=== PATIENT | female | born 1990 | race Caucasian/White ===

== ENCOUNTER 2024-05-30 10:43 | Emergency (ER) | payer OTHER, SELFPAY ==
[2024-05-30 10:45] VITALS: BP 123/75; PULSE 72; RESP 18; TEMP 37.2; O2SAT 99; BMI 27.8
--- NOTE | 2024-05-30 10:52 | VDLE_ITS ---
Reason For Study Reason For Study: Pain LLE RIGHT LEFT CFV is compressible, spontaneous, phasic, competent GSV is normal. and demonstrates normal augmentation. CFV is compressible, spontaneous, phasic, competent, Procedure and demonstrates normal augmentation. This is a venous duplex using B-mode, color flow and FV is compressible, spontaneous, phasic, competent spectral Doppler. and demonstrates normal augmentation. Exam performed portable in ED. POP V is compressible, spontaneous, and phasic. A preliminary report was called and/or faxed to [facility] Lt GastrocV and Lt PTV are DILATED and NON [place] PA. COMPRESSIBLE consistent with acute DVT Lt GastrocV DVT is just beginning to extend into the Lt PopV. T/P Trunk is compressible. LT PerV is compressible. VL/Venous Duplex US, Unilateral Interpretation Summary Acute deep vein thrombosis noted in left gastrocnemius vein, posterior tibial v ein. Ordering Physician: Caitlin Sher Performed By: Flora Galaviz, LAISHA, RVT
--- NOTE | 2024-05-30 10:54 | EX.ED.DYSGE1 ---
HPI <CHAVA Bridges - Last Filed: 05/30/24 12:55> History of Present Illness Chief Complaint: Lower Extremity Injury Narrative Narrative: 33-year-old female has stage IV colon cancer on chemotherapy and presents with left calf pain. About 5 days ago she developed cramping pain in the left inner thigh and upper calf that feels like a charley horse. She tried massage and [id number] pain relievers without relief. Her doctor recommended she come in to rule out a blood clot. She denies fever or chills. No leg swelling or skin changes. She has chronic skin rash from her cancer/chemotherapy. No history of DVT/PE. No chest pain or shortness of breath. [facility] <CHAVA Bridges - Last Filed: 05/30/24 12:55> [facility] Medical History (Updated 05/30/24 @ 12:55 by CHAVA Bridges) Colon cancer Home Medications ?Medication ?Instructions ?Recorded ?Last Taken ?Type apixaban 5 mg (74 tabs) tablets in See Rx Instructions PO .COMPLEX 05/30/24 Unknown Rx a dose pack (Eliquis DVT-PE Treat #74 tabs 30D Start) Allergy/AdvReac Type Severity Reaction Status Date / Time No Known Allergies Allergy Verified 05/30/24 10:45 Social History Smoking Status: Unknown if ever smoked ROS <CHAVA Bridges - Last Filed: 05/30/24 12:55> ROS ED ROS Narrative Constitutional: Negative for fever, chills, malaise. CVS: Negative for chest pain. Respiratory: Negative for shortness of breath. Neuro: Negative for motor/sensory dysfunction. EXAM <CHAVA Bridges - Last Filed: 05/30/24 12:55> Physical Exam Narrative Exam Narrative: CONST: Patient sitting in no acute distress. EYES: Normal inspection. NECK: Normal inspection. RESP: No respiratory distress, CTAB. CVS: Regular rate and rhythm, no murmur, no gallop. SKIN: Chronic macular reddish circular rash on both legs from her cancer/chemotherapy. No warmth or tenderness. EXTREMITIES: Normal appearance of both lower extremities. No edema. Tender over left upper calf without palpable cords. Full range of motion of all joints, 5/5 strength in dorsiflexion and plantarflexion, normal sensation, 2+ DP pulses. NEURO: Alert and answering questions appropriately. PSYCH: Normal affect. Const Vital Signs: 05/30/24 10:45 Temperature 98.9 F Temperature Source Oral Pulse Rate 72 Respiratory Rate 18 Blood Pressure 123/75 H Blood Pressure Mean 91 Pulse Ox 99 Oxygen Delivery Method Room Air <Dr. Kingsley Mays MD - Last Filed: 05/30/24 11:09> Physical Exam Const Vital Signs: 05/30/24 10:45 Temperature 98.9 F Temperature Source Oral Pulse Rate 72 Respiratory Rate 18 Blood Pressure 123/75 H Blood Pressure Mean 91 Pulse Ox 99 Oxygen Delivery Method Room Air MDM <CHAVA Bridges - Last Filed: 05/30/24 12:55> MDM MDM Narrative Medical decision making narrative: Differential includes but not limited to DVT versus calf strain 33-year-old female with advanced colon cancer on chemotherapy presents with left calf pain over the last few days. No injury. No history of DVT/PE. No chest pain or shortness of breath. Vital signs stable. There is reproducible tenderness of the upper calf without skin changes or palpable cords. Neurovascularly intact. Ultrasound is positive for DVT in the gastrocnemius. I thoroughly discussed benefits and risk of anticoagulation and first dose of Eliquis was administered in the ED. I recommended follow-up with her PCP and vascular surgery. She was discharged in stable condition. I have personally performed a face to face assessment of the patient and have reviewed the [facility] Note. I performed a substantive portion of the visit including all aspects of the following. My curiel findings include: History is [33-year-old female with advanced colon cancer with metastases complaining of atraumatic left calf pain for several days. No prior history of DVT or PE.] Exam is [well-appearing 33-year-old female. Vital signs are stable afebrile. H EENT exam pupils round reactive light. Moist mucous membranes. Neck nontender no lymphadenopathy. Lungs clear to auscultation bilaterally. Heart regular rhythm no murmur. Abdomen soft nontender. Moving all 4 extremities. She has tenderness to her proximal medial calf. There is no cords. No significant edema. Palpable DP pulse. Normal dorsi plantarflexion of the foot and ankle. Normal touch sensation. No redness or warmth. Normal flexion-extension of her left hip, knee and ankle.] Medical Decision Making [atraumatic left calf pain with a history of colon cancer with mets. Differential include DVT. Ultrasound being obtained. There is no signs of infection. No history of trauma x-rays are not needed. She does not need any blood work.] Other additions or changes: [None] <Dr. Kingsley Mays MD - Last Filed: 05/30/24 11:09> [facility] Narrative Medical decision making narrative: I have personally performed a face to face assessment of the patient and have reviewed the S[facility] Note. I performed a substantive portion of the visit including all aspects of the following. My curiel findings include: History is [33-year-old female with advanced colon cancer with metastases complaining of atraumatic left calf pain for several days. No prior history of DVT or PE.] Exam is [well-appearing 33-year-old female. Vital signs are stable afebrile. H EENT exam pupils round reactive light. Moist mucous membranes. Neck nontender no lymphadenopathy. Lungs clear to auscultation bilaterally. Heart regular rhythm no murmur. Abdomen soft nontender. Moving all 4 extremities. She has tenderness to her proximal medial calf. There is no cords. No significant edema. Palpable DP pulse. Normal dorsi plantarflexion of the foot and ankle. Normal touch sensation. No redness or warmth. Normal flexion-extension of her left hip, knee and ankle.] Medical Decision Making [atraumatic left calf pain with a history of colon cancer with mets. Differential include DVT. Ultrasound being obtained. There is no signs of infection. No history of trauma x-rays are not needed. She does not need any blood work.] Other additions or changes: [None] History & Record Review Discussion w/independent historian: Patient and Family Additional record(s) reviewed:: No prior records Discharge Plan Triage Chief Complaint: Lower Extremity Injury ED Midlevel Provider: Caitlin Sher ED Provider: Kingsley Mays Dx/Rx/DC Orders Clinical Impression: Acute deep vein thrombosis (DVT) of left lower extremity, History of colon cancer Instructions: DVT Dc Prescriptions: New Eliquis DVT-PE Treat 30D Start 5 mg (74 tabs) tablets,dose pack See Rx Instructions .ROUTE .COMPLEX Qty: 74 0RF Rx Instructions: orally per package directions [facility] [place] [Primary Care Provider] - Activity Restrictions/Additional Instructions: There is a blood clot or DVT in the veins of your left calf. Take the Eliquis twice daily as prescribed. This is a blood thinner and increases your risk of bleeding. If you would hit your head or have a major injury please be evaluated in the ER. If you see blood in urine or stool be evaluated. Follow-up with your primary care doctor and the vascular surgeon as needed. Print Language: Sinhala Disposition Disposition: Home, Self Care
[2024-05-30] MEDS: APIXABAN 5 MG TABLET 10 MG PO (13:14)
[2024-05-30 13:21] VITALS: BP 126/78; PULSE 76; RESP 18; TEMP 36.8; O2SAT 100
== END 2024-05-30 13:22 | disposition home or self-care (01) ==
PROVIDERS: Emergency Provider Emergency Medicine; Visit Provider Emergency Medicine
DX: I82.402 Acute embolism and thrombosis of unspecified deep veins of left lower extremity (principal); C18.9 Malignant neoplasm of colon, unspecified; R21 Rash and other nonspecific skin eruption
CPT/HCPCS: 93971; 99282